=== PATIENT | female | born 2000 | race Caucasian/White ===

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

== ENCOUNTER 2018-03-18 20:17 | Emergency (ER) | payer OTHER ==
[2018-03-18 21:47] LABS: ADD UMIC YES; UR ASCORBIC ACID NEGATIVE (NEGATIVE); UR BACTERIA FEW /HPF (NONE SEEN); UR BILIRUBIN (Dip) NEGATIVE (NEGATIVE); UR BLOOD (Dip) NEGATIVE (NEGATIVE); UR CLARITY SLIGHTLY CLOUDY (CLEAR); UR COLOR RED (YELLOW); UR GLUCOSE (Dip) NEGATIVE (NEGATIVE); UR KETONES (Dip) NEGATIVE (NEGATIVE); UR LEUKOCYTE ESTERASE (Dip) 2+ Leu/ul (NEGATIVE); UR NITRITE (Dip) NEGATIVE (NEGATIVE); UR RBC 0 /HPF (0-5); UR SPECIFIC GRAVITY (Dip) 1.001 (1.003-1.030); UR SQUAMOUS EPITHELIAL CELL FEW /HPF (FEW); UR TOTAL PROTEIN (Dip) NEGATIVE (NEGATIVE); UR UROBILINOGEN (Dip) NEGATIVE (NEGATIVE); UR WBC 4 /HPF (0-5)
[2018-03-18 21:58] LABS: ADD MAN DIFF? NO
[2018-03-18 22:05] LABS: BASOPHILS % 0.3 % (0.0-2.0); EOSINOPHILS # 0.1 10^3/ul (0.0-0.5); EOSINOPHILS % 0.4 % (0.0-7.0); HEMATOCRIT 38.6 % (37.0-47.0); HEMOGLOBIN 12.9 g/dl (12.0-16.0); LYMPHOCYTES # 2.3 10^3/ul (0.8-2.9); LYMPHOCYTES % 19.7 % (18.0-55.0); MEAN CORPUSCULAR HEMOGLOBIN 28.8 pg (29.0-33.0); MEAN CORPUSCULAR HGB CONC 33.4 g/dl (32.0-37.0); MEAN CORPUSCULAR VOLUME 86.2 fl (72.0-104.0); MEAN PLATELET VOLUME 12.3 fl (7.4-10.4); MONOCYTE # 0.7 10^3/ul (0.3-0.9); MONOCYTES % 6.1 % (0.0-13.0); NEUTROPHIL # 8.7 10^3/ul (1.6-7.5); NEUTROPHILS % 73.1 % (30.0-74.0); PLATELET COUNT 205 10^3/UL (140-415); RED BLOOD COUNT 4.48 10^6/ul (4.20-5.40); RED CELL DISTRIBUTION WIDTH 12.8 % (11.5-14.5)
[2018-03-18 22:05] LABS: WHITE BLOOD COUNT 11.8 10^3/ul (4.8-10.8)
[2018-03-18] MEDS: ACETAMINOPHEN 325 MG TAB PO (22:13)
== END 2018-03-18 22:57 | disposition home or self-care (01) ==
LOC: FTE 20:17
DX: O26.891 Other specified pregnancy related conditions, first trimester (principal); R10.2 Pelvic and perineal pain; Z3A.08 8 weeks gestation of pregnancy
CPT/HCPCS: 76801; 81001; 84702; 85025; 86900; 86901; 99284-25

== ENCOUNTER 2018-08-01 16:11 | Outpatient (CLI) | payer OTHER ==
[2018-08-01 16:54] LABS: ADD UMIC YES; UR ASCORBIC ACID NEGATIVE (NEGATIVE); UR BILIRUBIN (Dip) NEGATIVE (NEGATIVE); UR BLOOD (Dip) NEGATIVE (NEGATIVE); UR CLARITY SLIGHTLY CLOUDY (CLEAR); UR COLOR YELLOW (YELLOW); UR GLUCOSE (Dip) NEGATIVE (NEGATIVE); UR KETONES (Dip) NEGATIVE (NEGATIVE); UR LEUKOCYTE ESTERASE (Dip) 1+ Leu/ul (NEGATIVE); UR NITRITE (Dip) NEGATIVE (NEGATIVE); UR RBC 1 /HPF (0-5); UR SPECIFIC GRAVITY (Dip) 1.018 (1.003-1.030); UR SQUAMOUS EPITHELIAL CELL FEW /HPF (FEW); UR TOTAL PROTEIN (Dip) NEGATIVE (NEGATIVE); UR UROBILINOGEN (Dip) NEGATIVE (NEGATIVE); UR WBC 7 /HPF (0-5)
== END 2018-08-01 20:20 | disposition home or self-care (01) ==
LOC: OBT 16:11 → L-D 16:12 → OBT 20:20
DX: O23.42 Unspecified infection of urinary tract in pregnancy, second trimester (principal); Z3A.27 27 weeks gestation of pregnancy
CPT/HCPCS: 76817; 76818; 81001

== ENCOUNTER 2018-10-02 15:17 | Inpatient (IN) | payer OTHER ==
[2018-10-02] MEDS: LACTATED RINGER'S 1,000 ML IV ×2 (16:12→20:22)
[2018-10-02 16:18] LABS: ADD MAN DIFF? NO
[2018-10-02 16:22] LABS: BASOPHILS % 0.4 % (0.0-2.0); EOSINOPHILS # 0.2 10^3/ul (0.0-0.5); EOSINOPHILS % 2.4 % (0.0-7.0); HEMOGLOBIN 11.3 g/dl (12.0-16.0); LYMPHOCYTES # 2.5 10^3/ul (0.8-2.9); LYMPHOCYTES % 27.8 % (18.0-55.0); MEAN CORPUSCULAR HEMOGLOBIN 27.5 pg (29.0-33.0); MEAN CORPUSCULAR HGB CONC 32.3 g/dl (32.0-37.0); MEAN CORPUSCULAR VOLUME 85.2 fl (72.0-104.0); MEAN PLATELET VOLUME 12.1 fl (7.4-10.4); MONOCYTE # 0.4 10^3/ul (0.3-0.9); MONOCYTES % 4.6 % (0.0-13.0); NEUTROPHIL # 5.9 10^3/ul (1.6-7.5); NEUTROPHILS % 64.5 % (30.0-74.0); PLATELET COUNT 202 10^3/UL (140-415); RED BLOOD COUNT 4.11 10^6/ul (4.20-5.40); RED CELL DISTRIBUTION WIDTH 12.8 % (11.5-14.5)
[2018-10-02 16:22] LABS: WHITE BLOOD COUNT 9.1 10^3/ul (4.8-10.8)
[2018-10-02] MEDS: BETAMET NA PHOS/AC(6 MG/ML) 2 ML INJ SYG IM (16:30)
[2018-10-02 16:33] LABS: ADD UMIC YES; UR ASCORBIC ACID NEGATIVE (NEGATIVE); UR BILIRUBIN (Dip) NEGATIVE (NEGATIVE); UR BLOOD (Dip) 3+ mg/dL (NEGATIVE); UR CLARITY CLEAR (CLEAR); UR COLOR YELLOW (YELLOW); UR GLUCOSE (Dip) NEGATIVE (NEGATIVE); UR KETONES (Dip) NEGATIVE (NEGATIVE); UR LEUKOCYTE ESTERASE (Dip) NEGATIVE Leu/ul (NEGATIVE); UR NITRITE (Dip) NEGATIVE (NEGATIVE); UR RBC 64 /HPF (0-5); UR SPECIFIC GRAVITY (Dip) 1.027 (1.003-1.030); UR SQUAMOUS EPITHELIAL CELL FEW /HPF (FEW); UR TOTAL PROTEIN (Dip) NEGATIVE (NEGATIVE); UR UROBILINOGEN (Dip) 2+ mg/dL (NEGATIVE); UR WBC 3 /HPF (0-5)
[2018-10-02] MEDS ORDERED: TERBUTALINE 1 MG/ML INJ SC (18:30)
[2018-10-02] MEDS ORDERED: TERBUTALINE 0 ML (18:31)
[2018-10-02] MEDS ORDERED: OXYTOCIN 30 UNITS/LR 500 ML IV (19:30)
[2018-10-02] MEDS ORDERED: AMPICILLIN 2 GM/NS (PMX) 100 ML IV (19:30)
[2018-10-02] MEDS ORDERED: LIDOCAINE 1% (MPF) 30 ML INJ INJ (19:30)
[2018-10-02] MEDS ORDERED: CARBOPROST 250 MCG INJ IM (19:30)
[2018-10-02] MEDS ORDERED: BUTORPHANOL 2 MG INJ IV (19:30)
[2018-10-02] MEDS ORDERED: MISOPROSTOL 200 MCG TAB PR (19:30)
[2018-10-02 19:54] LABS: INR 0.93; PROTIME 12.6 Sec (11.9-14.9)
[2018-10-02 19:55] LABS: PARTIAL THROMBOPLASTIN TIME 25.5 Sec (23.0-35.0)
[2018-10-02 20:50] LABS: HEPATITIS B SURFACE ANTIGEN NEGATIVE (NEGATIVE)
[2018-10-02] MEDS ORDERED: LACTATED RINGER'S 1,000 ML IV (23:12)
[2018-10-02] MEDS ORDERED: AMPICILLIN 1 GM/NS (PMX) 50 ML IV (23:30)
[2018-10-02] MEDS ORDERED: IBUPROFEN 600 MG TAB PO (23:30)
[2018-10-03] MEDS: LACTATED RINGER'S 1,000 ML IV ×2 (03:44→11:41)
[2018-10-03] MEDS: BETAMET NA PHOS/AC(6 MG/ML) 2 ML INJ SYG IM (10:35)
[2018-10-03] MEDS ORDERED: FENTAnyl 2MCG/ML-ROPIV 0.2% 100 ML BAG EPI (11:00)
[2018-10-03] MEDS ORDERED: NALOXONE (0.4 MG/ML) INJ IV (11:00)
[2018-10-03] MEDS: MINERAL OIL LIGHT 10 ML VIAL TOP ×2 (13:30→22:50)
[2018-10-03] MEDS: OXYTOCIN 30 UNITS/LR 500 ML IV ×2 (18:19→18:28)
[2018-10-03] MEDS: METHYLERGONOVINE 0.2 MG INJ IM (18:35)
[2018-10-03] MEDS: ACETAMINOPHEN 500 MG TAB PO (20:38)
[2018-10-03] MEDS: KETOROLAC 30 MG INJ IV (20:38)
[2018-10-03] MEDS: LACTATED RINGER'S 1,000 ML IV* (21:32)
[2018-10-03] MEDS ORDERED: OXYTOCIN 30 UNITS/LR 500 ML IV (22:00)
[2018-10-03] MEDS ORDERED: DIBUCAINE 1% 30 GM OINT TOP (22:00)
[2018-10-03] MEDS ORDERED: MISOPROSTOL 200 MCG TAB PR (22:00)
[2018-10-03] MEDS ORDERED: ZOLPIDEM 5 MG TAB PO (22:00)
[2018-10-03] MEDS ORDERED: METHYLERGONOVINE 0.2 MG INJ IM (22:00)
[2018-10-03] MEDS ORDERED: CARBOPROST 250 MCG INJ IM (22:00)
[2018-10-03] MEDS ORDERED: HYDROCODONE/APAP (5/325) TAB PO ×2 (22:00)
[2018-10-03] MEDS: WITCH HAZEL/GLYCERIN PAD PR (22:27)
[2018-10-03] MEDS: BENZOCAINE 20% 56 ML SPRAY TOP (22:27)
[2018-10-03 22:43] LABS: RAPID PLASMA REAGIN NONREACTIVE (NR)
[2018-10-03] MEDS: CEPHALEXIN 500 MG CAP PO (23:42)
[2018-10-04] MEDS: LACTATED RINGER'S 1,000 ML IV* ×2 (05:32→13:32)
[2018-10-04] MEDS: IBUPROFEN 600 MG TAB PO ×4 (05:54→17:22)
[2018-10-04] MEDS: CEPHALEXIN 500 MG CAP PO ×3 (05:54→17:22)
[2018-10-04 07:51] LABS: ADD MAN DIFF? NO
[2018-10-04 07:53] LABS: WHITE BLOOD COUNT 14.2 10^3/ul (4.8-10.8)
[2018-10-04 07:53] LABS: BASOPHILS % 0.1 % (0.0-2.0); HEMOGLOBIN 10.1 g/dl (12.0-16.0); LYMPHOCYTES # 1.8 10^3/ul (0.8-2.9); LYMPHOCYTES % 12.8 % (18.0-55.0); MEAN CORPUSCULAR HEMOGLOBIN 27.8 pg (29.0-33.0); MEAN CORPUSCULAR HGB CONC 32.6 g/dl (32.0-37.0); MEAN CORPUSCULAR VOLUME 85.4 fl (72.0-104.0); MEAN PLATELET VOLUME 12.3 fl (7.4-10.4); MONOCYTE # 0.9 10^3/ul (0.3-0.9); MONOCYTES % 6.1 % (0.0-13.0); NEUTROPHIL # 11.4 10^3/ul (1.6-7.5); NEUTROPHILS % 80.3 % (30.0-74.0); PLATELET COUNT 202 10^3/UL (140-415); RED BLOOD COUNT 3.63 10^6/ul (4.20-5.40); RED CELL DISTRIBUTION WIDTH 12.8 % (11.5-14.5)
[2018-10-04] MEDS: MAGNESIUM HYDROXIDE 30ML CUP PO ×2 (09:13→20:43)
[2018-10-04] MEDS: SENNA/DOCUSATE NA (8.6MG/50MG) TAB PO ×2 (09:13→20:38)
[2018-10-05] MEDS: CEPHALEXIN 500 MG CAP PO ×4 (02:53→18:00)
[2018-10-05] MEDS: IBUPROFEN 600 MG TAB PO ×4 (02:53→18:00)
[2018-10-05 06:25] LABS: ADD MAN DIFF? NO
[2018-10-05 06:29] LABS: BASOPHILS % 0.3 % (0.0-2.0); EOSINOPHILS % 0.3 % (0.0-7.0); HEMATOCRIT 32.7 % (37.0-47.0); HEMOGLOBIN 10.5 g/dl (12.0-16.0); LYMPHOCYTES # 3.6 10^3/ul (0.8-2.9); LYMPHOCYTES % 26.8 % (18.0-55.0); MEAN CORPUSCULAR HEMOGLOBIN 27.8 pg (29.0-33.0); MEAN CORPUSCULAR HGB CONC 32.1 g/dl (32.0-37.0); MEAN CORPUSCULAR VOLUME 86.5 fl (72.0-104.0); MONOCYTE # 0.9 10^3/ul (0.3-0.9); MONOCYTES % 6.3 % (0.0-13.0); NEUTROPHIL # 8.9 10^3/ul (1.6-7.5); NEUTROPHILS % 65.8 % (30.0-74.0); PLATELET COUNT 191 10^3/UL (140-415); RED BLOOD COUNT 3.78 10^6/ul (4.20-5.40); RED CELL DISTRIBUTION WIDTH 12.8 % (11.5-14.5)
[2018-10-05 06:29] LABS: WHITE BLOOD COUNT 13.6 10^3/ul (4.8-10.8)
[2018-10-05] MEDS: SENNA/DOCUSATE NA (8.6MG/50MG) TAB PO (09:00)
[2018-10-05] MEDS: MAGNESIUM HYDROXIDE 30ML CUP PO (09:00)
[2018-10-05] MEDS: DIPHTH/TET/ACEL PERTUSS (ADULT) 0.5 ML VIAL IM* (09:33)
[2018-10-05] MEDS: VARICELLA VACCINE LIVE/PF 1,350 UNIT/0.5 ML ML SC* (09:34)
[2018-10-05] MEDS: WITCH HAZEL/GLYCERIN PAD PR (09:35)
[2018-10-05] MEDS: BENZOCAINE 20% 56 ML SPRAY TOP (09:35)
[2018-10-05] MEDS: LANOLIN HPA 1 PKT TOP (09:35)
[2018-10-05] MEDS: MEASLES,MUMPS,RUBELLA VACCINE INJ SC* (09:37)
== END 2018-10-05 18:37 | disposition home or self-care (01) | DRG 807 ==
LOC: OBT 15:17 → L-D 15:17 → PP1 10-03 21:02 → OBT 19:00 → L-D 19:00
PROVIDERS: Obstetrics & Gynecology
PROC: 10E0XZZ Delivery of Products of Conception, External Approach (ICD-10-PCS; principal; 2018-10-03)
PROC: 0HQ9XZZ Repair Perineum Skin, External Approach (ICD-10-PCS; 2018-10-03)
DX: O60.13X0 Preterm labor second trimester with preterm delivery third trimester, not applicable or unspecified (principal); O70.0 First degree perineal laceration during delivery; Z37.0 Single live birth; Z3A.36 36 weeks gestation of pregnancy
CPT/HCPCS: 62322; 76818; 81001; 85025; 85610; 85730; 86592; 86850; 86900; 86901; 87340; 90716